=== PATIENT | male | born 1975 | race Caucasian/White ===

== ENCOUNTER 2017-12-12 11:32 | Emergency (ER) | payer OTHER ==
[~2017-12-12] VITALS: Ht 177.8 cm; Wt 90.0 kg
[2017-12-12 11:34] VITALS: BP 154/84; PULSE 73; RESP 16; TEMP 98.5; O2SAT 97
--- NOTE | 2017-12-12 12:11 | PD ---
HPI Chief Complaint: Musculoskeletal Complaint Time Seen by Provider: 11:57 Travel History International Travel<30 days: No Contact w/Intl Traveler<30days: No Traveled to known affect area: No History of Present Illness HPI 42-year-old male presents emergency department for evaluation of his right knee that has been persistent over the last day. Patient states that he rode his bicycle a significant amount of time last weekend but felt fine afterwards. States that he drove to and from [place] and this is when his knee really swelled up and became increasingly painful. Says the pain is mild to moderate, worse with weightbearing and bending the knee. Patient states that he is having hard time bending it. He denies numbness or tingling. Says he has had use crutches that he has in his garage to ambulate around the house. Patient says that he had a skateboarding incident years ago that resulted in a valgus type of distraction injury. Patient states that he never was evaluated does not know if he has a fracture. He denies history of IV drug use or other illicit drugs. He denies chronic medical issues medication use. [facility] Past Medical History Musculoskeletal: Yes (RIGHT KNEE INJURY IN PAST) Tetanus Vaccination: > 5 Years Influenza Vaccination: No ?: Not Social History Alcohol Use: Yes (OCCAS) Tobacco Use: No Substance Use: No Allergies-Medications (Allergen,Severity, Reaction): Coded Allergies: No Known Allergies (Verified Allergy, Unknown, 12/12/17) Uncoded Allergies: NONE (Allergy, Unknown, 05/18/03) Reported Meds & Prescriptions Reported Meds & Active Scripts Active Meloxicam 7.5 Mg Tab 7.5 Mg PO BID 7 Days Avoid other antiinflammatory medications while taking meloxicam. Eat with this medication. Review of Systems Except as stated in HPI: all other systems reviewed are Neg Physical Exam Narrative GENERAL: Well-nourished, well-developed patient. SKIN: Focused skin assessment warm/dry. HEAD: Normocephalic. EYES: No scleral icterus. No injection or drainage. NECK: Supple, trachea midline. No JVD or lymphadenopathy. CARDIOVASCULAR: Regular rate and rhythm without murmurs, gallops, or rubs. RESPIRATORY: Breath sounds equal bilaterally. No accessory muscle use. GASTROINTESTINAL: Abdomen soft, non-tender, nondistended. MUSCULOSKELETAL: No cyanosis, or edema. Right lower extremity-knee is edematous, no erythema, no lymph angiopathic spread. Mild temperature noted. Patient is spontaneously moving the joint with limited range of motion. Dorsalis pedis pulses present. Neurovascularly intact. BACK: Nontender without obvious deformity. No CVA tenderness. Data Data Last Documented VS Vital Signs Date Time Temp Pulse Resp B/P (MAP) Pulse Ox O2 Delivery O2 Flow Rate FiO2 12/12/17 11:34 98.5 73 16 154/84 (107) 97 Orders Orders Knee, Complete (4vws) (12/12/17 ) Ed Discharge Order (12/12/17 13:02) MDM Medical Decision Making Medical Screen Exam Complete: Yes Emergency Medical Condition: Yes Differential Diagnosis Right knee effusion, right knee sprain, right knee contusion, unlikely septic arthritis Narrative Course 42-year-old male presents emergency department for evaluation of his right knee that has been persistent over the last day. Patient states that he rode his bicycle a significant amount of time last weekend but felt fine afterwards. States that he drove to and from [place] and this is when his knee really swelled up and became increasingly painful. Says the pain is mild to moderate, worse with weightbearing and bending the knee. Patient states that he is having hard time bending it. He denies numbness or tingling. Says he has had use crutches that he has in his garage to ambulate around the house. Patient says that he had a skateboarding incident years ago that resulted in a valgus type of distraction injury. Patient states that he never was evaluated does not know if he has a fracture. Says he has been using ibuprofen without significant relief. He denies history of IV drug use or other illicit drugs. He denies chronic medical issues medication use. Vital signs stable. Physical exam findings consistent with a knee effusion. Because of history of injury, ordered x-ray to evaluate for bony abnormalities. Pt has severe tricompartmental osteoarthritis. He is instructed to follow up with an orthopedist for his knee pain. RICE for comfort measures. Mobic for his joint pain. Avoid other NSAIDs while taking this medication. Diagnosis Primary Impression: Osteoarthritis Qualified Codes: M17.31 - Unilateral post-traumatic osteoarthritis, right knee Referrals: Nathaniel Lebron MD, Antony Jr. MD Orthopedist Departure Forms: Tests/Procedures, Work Release Enter return to work date: Dec 14, 2017 Special Instructions: Allow time off of the knee to allow heeling. Additional Instructions: Use ice or heat for symptom relief. Elevate the joint above the heart to reduce swelling. You may use compression with [place] wrap or similar to reduce swelling. If symptoms persist or worsen, return to the emergency department. Follow up with your primary care physician within 2 days. Tylenol or Motrin per package instructions. Follow up with an insurance sales specialist for your knee. Scripts Meloxicam (Meloxicam) 7.5 Mg Tab 7.5 MG PO BID for Arthritis Pain for 7 Days, #14 TAB 0 Refills Avoid other antiinflammatory medications while taking meloxicam. Eat with this medication. Prov: John Dominguez MD 12/12/17 Disposition: 01 DISCHARGE HOME Condition: Stable Alina Huertas Dec 12, 2017 12:11
--- NOTE | 2017-12-12 12:49 | RADRPT ---
EXAM DATE/TIME: 12/12/2017 12:10 [facility] COMPARISON: No previous studies available for comparison. INDICATIONS : Right knee pain and swelling after twisting knee yesterday. MEDICAL HISTORY : History of right knee injury 10 years ago. SURGICAL HISTORY : None. ENCOUNTER: Initial ACUITY: 2 days PAIN SCORE: 8/10 LOCATION: Right knee. FINDINGS: Very severe 3 compartment osteoarthritis present and with large osteophytes. I don't see an acute fra cture or subluxation. A moderate to large joint effusion is present. CONCLUSION: 1. No perceptible fracture. 2. Nonspecific joint effusion. 3. Severe osteoarthritis. Rufus Mak MD on December 12, 2017 at 12:47 Board Certified Radiologist. This report was verified electronically.
[2017-12-12] MEDS ORDERED: MELO7.5T27 PO (13:02)
== END 2017-12-12 13:28 | disposition home or self-care (01) ==
LOC: PHEFT 11:32
DX: M17.31 Unilateral post-traumatic osteoarthritis, right knee (principal)
CPT/HCPCS: 73564; 99283